=== PATIENT | female | born 1990 | race Caucasian/White ===

== ENCOUNTER 2023-03-16 21:49 | Emergency (ER) | payer OTHER, SELFPAY ==
[2023-03-16 21:50] VITALS: BP 127/87; PULSE 96; RESP 16; TEMP 36.9; O2SAT 99; BMI 29.6
--- NOTE | 2023-03-16 21:59 | XR_ITS ---
PROCEDURE INFORMATION: Exam: XR Chest Exam date and time: 03/16/2023 10:00 PM Age: 32 years old Clinical indication: Chest wall pain; Additional info: Lt abd pain TECHNIQUE: Imaging protocol: Radiologic exam of the chest. Views: 2 views. COMPARISON: CR CXR CHEST(2 VIEWS-NOT PORTABLE) 03/22/2017 2:00 AM FINDINGS: Lungs: Normal pulmonary expansion. Pulmonary vasculature grossly normal. No gross pulmonary infiltrates or edema pattern. Pleural spaces: No pleural effusion. No pneumothorax. Heart/Mediastinum: Heart size normal. No tracheal/mediastinal shift. Bones/joints: No acute osseous abnormalities are identified. Mild lower thoracic spondylosis. IMPRESSION: No acute thoracic process.
[2023-03-16 22:00] VITALS: BP 119/77; PULSE 98; O2SAT 97
--- NOTE | 2023-03-16 22:00 | CT_ITS ---
PROCEDURE INFORMATION: Exam: CT Abdomen And Pelvis With Contrast Exam date and time: 03/16/2023 10:19 PM Age: 32 years old Clinical indication: Abdominal pain; Additional info: Lt side abd pain TECHNIQUE: Imaging protocol: Computed tomography of the abdomen and pelvis with contrast. Radiation optimization: All CT scans at this facility use at least one of these dose optimization techniques: automated exposure control; mA and/or kV adjustment per patient size (includes targeted exams where dose is matched to clinical indication); or iterative reconstruction. Contrast material: ISOVUE; Contrast volume: 75 ml; Contrast route: IV; REPORTING DATA: Count of CT and Cardiac NM exams in prior 12 months: This patient has received 0 known CTs and 0 known cardiac nuclear medicine studies in the 12 months prior to the current study. COMPARISON: CR XR CHEST 2V 03/16/2023 10:00 PM FINDINGS: Lungs: Visualized lung bases are clear. Heart: Heart size normal. Mediastinal space: The visualized distal esophagus is largely contracted without gross abnormality. Liver: Normal contour. No mass lesions. No intrahepatic biliary ductal dilatation. Gallbladder and bile ducts: Normal. No calcified stones. No ductal dilation. Pancreas: Normal. No inflammatory changes or ductal dilation. Spleen: Normal. No splenomegaly. Adrenal glands: Normal. No adrenal mass. Kidneys and ureters: No acute abnormalities. No hydronephrosis or hydroureter. No urinary tract stones are identified. Stomach and bowel: The stomach is largely contracted. The small bowel is nondilated with no gross abnormality. No acute colonic abnormalities. Appendix: The appendix is normal in caliber and demonstrates no evidence of appendicitis. Intraperitoneal space: No free fluid or air. Vasculature: No acute process. No abdominal aortic aneurysm. Lymph nodes: No adenopathy. Urinary bladder: Question slight urinary bladder wall thickening with no significant stranding, correlate with UA for evidence of cystitis. Reproductive: Prior hysterectomy. 1.8 cm simple right ovarian cyst/follicle incidentally noted. Bones/joints: No acute osseous abnormalities. Soft tissues: Unremarkable. IMPRESSION: 1. No definite acute process. 2. Question mild urinary bladder wall thickening without adjacent stranding, correlate with UA for evidence of cystitis.
--- NOTE | 2023-03-16 22:06 | ECG_ITS ---
APPROVED REPORT Exam: Resting ECG HR:93 bpm ECG Measurements Heart Rate 93 AXES IN 128 P 64 QRSd 99 QRS 57 QT 366 T 53 QTc 417 Conclusion SINUS RHYTHM POSSIBLE LEFT ATRIAL ENLARGEMENT [-0.1mV P-WAVE IN V1/V2] BORDERLINE ECG UNCONFIRMED REPORT Electronically signed by : Faizan Lee MD 03/17/2023 15:51:58
--- NOTE | 2023-03-16 22:09 | PC.NURSE ---
pt going to scan
[2023-03-16 22:12] LABS: Basophils % 0.2 % (0.1-2.0); Eosinophils # 0.2 K/mm3 (0.0-0.4); Eosinophils % 2.1 % (0.1-12.0); Hematocrit 45.7 % (37.0-47.0); Lymphocytes # 1.3 K/mm3 (0.7-4.5); Lymphocytes % 12.6 % (10-50); Mean Corpuscular HGB Conc 32.9 g/dL (31.8-35.4); Mean Corpuscular Volume 91.1 fl (81-99); Mean Platelet Volume 7.3 fl (7.4-10.4); Monocytes # 0.2 K/mm3 (0.1-1.0); Monocytes % 1.7 % (1.7-9.3); Neutrophils # 8.2 K/mm3 (1.8-7.8); Neutrophils % 83.4 % (37.0-80.0); Platelet Count 332 K/mm3 (142-424); Red Blood Count 5.02 M/mm3 (4.20-5.40); Red Cell Distribution Width 13.1 % (11.5-17.5); White Blood Count 9.9 K/mm3 (4.8-10.8)
[2023-03-16 22:14] LABS: Chloride 99 mmol/L (98-107); Potassium 3.8 mmoL/L (3.5-5.1); Sodium 139 mmol/L (136-145)
[2023-03-16 22:17] LABS: Alanine Aminotransferase 31 U/L (12-78); Albumin Level 4.3 g/dl (3.5-5.0); Albumin/Globulin Ratio 1.4 (1.1-1.8); Alkaline Phosphatase 79 U/L (38-126); Anion Gap 18.8 mEq/L (5-15); Aspartate Amino Transferase 29 U/L (14-36); Bilirubin,Total 0.2 mg/dl (0.2-1.3); Blood Urea Nitrogen 5 mg/dl (7-17); Carbon Dioxide 25 mmol/L (22.0-30.0); Creatinine Clearance Estimated 150 mL/min (50-200); Estimated Glomerular Filt Rate 98 ml/min (>60); GFR (African American) 119 ML/MIN (>60); Globulin 3.1 g/dL (1.3-3.2); Glucose 123 mg/dl (74-100); Total Protein,Serum 7.4 g/dl (6.3-8.2)
[2023-03-16 22:27] LABS: NT Pro Brain Natriuretic Pep. 136 pg/mL (0-125)
[2023-03-16 22:30] VITALS: BP 112/68; PULSE 79; O2SAT 98
[2023-03-16 22:30] LABS: Troponin I < 0.01 ng/ml (0.00-0.034)
[2023-03-16 23:01] VITALS: BP 108/71; PULSE 39; O2SAT 94
[2023-03-16 23:30] VITALS: BP 108/78; PULSE 64; RESP 20; O2SAT 98
[2023-03-16 23:38] VITALS: BP 110/78; PULSE 67; RESP 20; TEMP 36.9; O2SAT 98
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
== END 2023-03-16 23:40 | disposition home or self-care (01) ==
PROVIDERS: Emergency Provider Emergency Medicine; PCP Family Medicine
DX: R07.81 Pleurodynia; R42 Dizziness and giddiness; F17.200 Nicotine dependence, unspecified, uncomplicated; R10.12 Left upper quadrant pain
CPT/HCPCS: 71046; 74177; 80053; 83880; 84484; 85025; 93005; 96361; 96374; 96375; 99285; J2405; Q9967

== ENCOUNTER 2024-11-04 18:51 | Emergency (ER) | payer OTHER, SELFPAY ==
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
[2024-11-04 18:59] VITALS: BP 133/78; PULSE 67; RESP 18; TEMP 36.9; O2SAT 98; BMI 31.3
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
[2024-11-04] MEDS: LIDOCAINE 5% TRANSDERMAL PATCH 1 EACH TP (19:30)
[2024-11-04] MEDS: IBUPROFEN 400 MG TABLET 800 MG PO (19:30)
[2024-11-04] MEDS: ACETAMINOPHEN 500MG TAB 1000 MG PO (19:30)
[2024-11-04] MEDS: METHOCARBAMOL 500MG TABLET 500 MG PO (19:30)
--- NOTE | 2024-11-04 19:33 | PC.NURSE ---
Pt to xray via wheelchair
[2024-11-04 20:53] VITALS: BP 121/74; PULSE 62; RESP 20; TEMP 36.8; O2SAT 99
== END 2024-11-04 20:57 | disposition home or self-care (01) ==
PROVIDERS: Emergency Provider Emergency Medicine; PCP Family Medicine
DX: S20.219A Contusion of unspecified front wall of thorax, initial encounter (principal); S62.607A Fracture of unspecified phalanx of left little finger, initial encounter for closed fracture; R07.89 Other chest pain; M79.645 Pain in left finger(s); Y04.0XXA Assault by unarmed brawl or fight, initial encounter; Y93.89 Activity, other specified; Y92.9 Unspecified place or not applicable
CPT/HCPCS: 71250; 73130; 99284

== ENCOUNTER 2024-11-18 09:42 | Outpatient (CLI) | payer OTHER, SELFPAY ==
--- NOTE | 2024-11-18 09:46 | XR_ITS ---
FINAL REPORT CLINICAL HISTORY: Lt Hand Pain, 5th digit COMPARISON: None FINDINGS: LEFT HAND Three views demonstrate no acute fracture or dislocation. The visualized joint spaces are normally aligned. The soft tissues are unremarkable. IMPRESSION: No acute process. Reviewed, Interpreted and Dictated by Cayden Prater MD Transcribed by Suma Reddy Authenticated and [facility]
== END 2024-11-18 23:59 | disposition home or self-care (01) ==
LOC: RAD 09:42
PROVIDERS: PCP Family Medicine; Visit Provider Orthopaedic Surgery
DX: M79.642 Pain in left hand (principal); S62.667A Nondisplaced fracture of distal phalanx of left little finger, initial encounter for closed fracture
CPT/HCPCS: 73130

== ENCOUNTER 2024-11-26 19:26 | Emergency (ER) | payer OTHER, SELFPAY ==
[2024-11-26 19:27] VITALS: BP 119/56; PULSE 66; RESP 16; TEMP 36.9; O2SAT 99; BMI 30.1
[2024-11-26] MEDS: LACTATED RINGERS 1000ML 1,000 ML 999 ML IV (20:00)
[2024-11-26] MEDS: ACETAMINOPHEN 1,000MG/100ML VIAL 1000 MG IV (20:01)
[2024-11-26] MEDS: diphenhydrAMINE 50MG/ML VIAL 25 MG IV (20:02)
[2024-11-26] MEDS: METOCLOPRAMIDE HCL 10MG/2ML VIAL 5 MG IVP (20:02)
[2024-11-26] MEDS: KETOROLAC 30MG/ML VIAL 15 MG IV (20:03)
--- NOTE | 2024-11-26 20:26 | ED_ITS ---
Discharge Plan Disposition Patient Disposition: Home, Self-Care Condition: Good Prescriptions Prescriptions: No Action famotidine [Pepcid] 20 mg tablet 20 mg PO BID 42 Days Qty: 84 0RF dicyclomine 20 mg tablet 20 mg PO QID PRN (Reason: abdominal pain) Qty: 20 0RF prednisone 50 mg tablet 50 mg PO DAILY 5 Days Qty: 5 0RF ondansetron 4 mg tablet,disintegrating 4 mg PO Q8H PRN (Reason: nausea and vomiting) 3 Days Qty: 14 0RF methocarbamol 750 mg tablet 750 mg PO Q6H PRN (Reason: muscle spasm) Qty: 20 0RF lidocaine 5 % adhesive patch,medicated 1 patch topical DAILY Qty: 30 0RF Rx Instructions: leave on most painful area for up to 12 hrs Referrals Follow up/Referrals: Nasir Pradhan MD [Primary Care Provider] - See instructions Activity Restrictions/Add. Instructions Additional Instructions/Restrictions: You were evaluated in the emergency department today. Please follow-up closely with your primary care provider. Return to the emergency department for new or worsening symptoms. Clinical Impressions Clinical Impression: Migraine Stand Alone Forms Stand Alone Forms: Work/School Release Instructions Patient Instructions: DI for Migraine Print Language Print Language: Algerian Discharge ED Provider: Mine Mitchell General Adult HPI General Chief complaint: Headache Stated complaint: CORBIN Time Seen by Provider: 11/26/24 19:34 Mode of Arrival: Ambulatory Source of Information: Patient Limitations: No Limitations Description of Symptoms (Recalled from ER Triage Doc. by RN): pT C/O MIGRAINE, +NV, STARTED YESTERDAY, WORSENING TODAY. PT WITH HX OF MIGRAINES. OTC MEDS TDAY AT 1500 W/ OUT RELIEF. History of Present Illness HPI narrative: This patient is a 34-year-old female with history of migraines presented to the emergency department for evaluation with concern for flareup of migraine. She states that he started out as a dull headache 2 days ago but is progressively worsened into a full-blown migraine. She tried her usual remedies at home including ibuprofen, caffeine, etc. but nothing seems to make the symptoms better. No new features. With this, she does have nausea and photophobia. No recent traumatic injuries or other concerns noted at this time Related Data Previous Rx's ?Medication ?Instructions ?Recorded dicyclomine 20 mg tablet 20 mg PO QID PRN abdominal pain 03/16/23 #20 tabs famotidine 20 mg tablet (Pepcid) 20 mg PO BID 6 weeks #84 tabs 03/16/23 ondansetron 4 mg disintegrating 4 mg PO Q8H PRN nausea and 03/16/23 tablet vomiting 3 days #14 tabs prednisone 50 mg tablet 50 mg PO DAILY 5 days #5 tabs 03/16/23 lidocaine 5 % topical patch 1 patch topical DAILY #30 ea 11/04/24 methocarbamol 750 mg tablet 750 mg PO Q6H PRN muscle spasm #20 11/04/24 tabs Allergies Allergy/AdvReac Type Severity Reaction Status Date / Time No Known Allergies Allergy Verified 11/18/24 10:16 [facility] Disclaimer: The information contained in this section may have been updated after the patient was seen, as this information can be updated by other users. Social History Smoking Status: Current every day smoker alcohol intake: never current occupational status: other Travel in the last 8 weeks: None Have you lived/traveled outside [place] in past 30 days?: No Contact w/someone who lives/traveled outside US past 30 days?: No Exposure to someone with infectious disease in past 14 days?: No Do you have a fever (greater than 100.4 F or 38 C)?: No Have you tested positive for COVID-19: No Exposed to someone with COVID-19 in past 14 days?: No Do you have a sore throat?: No Do you have a cough?: No Do you have any weakness?: No Do you have any diarrhea?: No Are you experiencing any unusual bleeding?: No Do you have any muscle aches/pain?: No Do you have any abdominal pain?: No Are you experiencing loss of taste or smell?: No ROS Obtained: Yes All systems reviewed & no additional complaints except as documented Physical Exam General General appearance: alert and in no apparent distress Head Head exam: atraumatic and normocephalic Eye Eye exam: Present normal appearance, PERRL and EOMI ENT ENT exam: Present normal exam, normal oropharynx, mucous membranes moist and normal external ear exam Neck Neck exam: Present normal inspection, full ROM and trachea midline; Absent tenderness Chest Chest inspection: Present normal inspection and symmetric chest wall rise; Absent tenderness Respiratory Respiratory exam: Present normal lung sounds bilaterally; Absent respiratory distress, wheezes, stridor or accessory muscle use Cardiovascular Cardiovascular exam: Present regular rate and normal rhythm Abdominal Exam Abdominal exam: Present soft; Absent distention, tenderness or guarding Extremities Exam Extremities exam: Present normal inspection, full ROM and normal capillary refill; Absent tenderness or edema Back Exam Back exam: Present normal inspection and full ROM; Absent tenderness Neurological Exam Neurological exam: Present alert, oriented X3, CN II-XII intact and normal gait; Absent motor sensory deficit Psychiatric Psychiatric exam: Present normal affect and normal mood Skin Skin exam: Present warm and dry Medical Decision Making Medical Records Medical records reviewed: Yes I reviewed the patient's medical records. Screening: Per USPSTF and CDC recommendations, given the prevalence of disease in our region, it is our hospital?s policy to screen for HIV and viral Hepatitis for all patients aged 18 and over and those with ongoing risk factors. Kevyn Inquiry Pt receiving controlled substance: No Vital Signs: 11/26/24 19:27 11/26/24 22:49 Temperature 98.4 F 97.9 F Temperature Source Oral Tympanic Pulse Rate 78 Pulse Rate [Apical] 66 Respiratory Rate 16 18 Blood Pressure 115/78 Blood Pressure [Right Arm] 119/56 L Blood Pressure Mean [Right Arm] 77 02 Sat by Pulse Oximetry 99 Oxygen Delivery Method Room Air Room Air Lab Data Lab results reviewed: Yes I reviewed the patient's lab results. Orders (Tests/Meds): ED MEDICATIONS Discontinued Medications Generic Name Dose Route Start Last Admin Trade Name Freq PRN Reason Stop Dose Admin Acetaminophen 1,000 mg 11/26/24 19:44 11/26/24 20:01 Acetaminophen 1,000mg/100ml Vial IV 11/26/24 19:45 1,000 mg ONCE ONE Administration Dexamethasone Sodium Phosphate 10 mg 11/26/24 21:44 11/26/24 21:56 Dexamethasone 4mg/Ml 1ml Vial IV 11/26/24 21:45 10 mg ONCE ONE Administration Diphenhydramine HCl 25 mg 11/26/24 19:44 11/26/24 20:02 Diphenhydramine 50mg/Ml Vial IV 11/26/24 19:45 25 mg ONCE ONE Administration Lactated Ringer's 1,000 mls @ 999 mls/hr 11/26/24 19:44 11/26/24 20:00 Lactated Ringer's 1000 Ml Bag IV 11/26/24 20:44 999 mls/hr .Q1H1M ONE Administration Ketorolac Tromethamine 15 mg 11/26/24 19:44 11/26/24 20:03 Ketorolac 30mg/Ml Vial IV 11/26/24 19:45 15 mg ONCE ONE Administration Magnesium Oxide 400 mg 11/26/24 21:45 11/26/24 21:56 Magnesium Oxide 400mg Tablet PO 11/26/24 21:46 400 mg ONCE ONE Administration Metoclopramide HCl 5 mg 11/26/24 19:44 11/26/24 20:02 Metoclopramide Hcl 10mg/2ml Vial IVP 11/26/24 19:45 5 mg ONCE ONE Administration Medical Decision Narrative: In summary, this patient is a 34-year-old female presenting to the Emergency Department for evaluation of migraine. Differential diagnoses considered include but are not limited to migraine, tension headache, intracranial hemorrhage. Ruling out the most morbid conditions drove assessment. It should be noted patient's history includes migraines which is not at goal therapy. This complicates all aspects of care by increasing patient's risk for morbidity. On exam, the patient is very well-appearing. She is neurologically intact without focal neurologic deficits. She has history of migraines and this is without new significant features. No recent traumatic injury or other concern. This was not sudden onset thunderclap, it was gradual in onset. 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 Patient was agreeable to receive migraine cocktail. She was given IV Toradol, acetaminophen, Reglan, Benadryl, IV dexamethasone, oral magnesium, and a bolus of IV fluids to assess for symptomatic improvement. On reassessment, she is feeling better and is neurologically intact with reassuring vital signs on cardiac telemetry. I feel she is appropriate for discharge home with instructions for close follow-up on an outpatient basis for her chronic migraines. Strict return precautions were given and she was discharged after all questions were answered Critical Care Critical Care Time Critical Care Time: No
[2024-11-26] MEDS: MAGNESIUM OXIDE 400MG TABLET 400 MG PO (21:56)
[2024-11-26] MEDS: DEXAMETHASONE 4MG/ML 1ML VIAL 10 MG IV (21:56)
[2024-11-26 22:49] VITALS: BP 115/78; PULSE 78; RESP 18; TEMP 36.6; O2SAT 100
== END 2024-11-26 22:56 | disposition home or self-care (01) ==
PROVIDERS: Emergency Provider Emergency Medicine; PCP Family Medicine
DX: G43.909 Migraine, unspecified, not intractable, without status migrainosus (principal); R11.2 Nausea with vomiting, unspecified; H53.149 Visual discomfort, unspecified
CPT/HCPCS: 96361; 96374; 96375; 99283; J0131; J1100; J1200; J1885; J2765; J7120

== ENCOUNTER 2025-02-26 16:19 | Emergency (ER) | payer OTHER, SELFPAY ==
[2025-02-26 16:22] VITALS: BP 115/71; PULSE 60; RESP 18; TEMP 36.6; O2SAT 99; BMI 31.8
--- NOTE | 2025-02-26 16:27 | ED_ITS ---
<Statement entered by Mine Mitchell DO - 02/27/25 00:38> I was consulted by the SOBIA, and we discussed the complexity of the problems being addressed. I approved the treatment and management plan for this patient's care in the emergency department, thus performing a substantive portion of the medical decision making. Mine Mitchell DO Discharge Plan Disposition Patient Disposition: Eloped Chief Complaint: Headache Prescriptions Prescriptions: No Action famotidine [Pepcid] 20 mg tablet 20 mg PO BID 42 Days Qty: 84 0RF dicyclomine 20 mg tablet 20 mg PO QID PRN (Reason: abdominal pain) Qty: 20 0RF prednisone 50 mg tablet 50 mg PO DAILY 5 Days Qty: 5 0RF ondansetron 4 mg tablet,disintegrating 4 mg PO Q8H PRN (Reason: nausea and vomiting) 3 Days Qty: 14 0RF methocarbamol 750 mg tablet 750 mg PO Q6H PRN (Reason: muscle spasm) Qty: 20 0RF lidocaine 5 % adhesive patch,medicated 1 patch topical DAILY Qty: 30 0RF Rx Instructions: leave on most painful area for up to 12 hrs Referrals Follow up/Referrals: Nasir Pradhan MD [Primary Care Provider] - See instructions Clinical Impressions Clinical Impression: Headache Qualifiers: Headache type: unspecified Headache chronicity pattern: episodic headache I ntractability: not intractable Qualified Code(s): R51.9 - Headache, unspecified Print Language Print Language: Danish Discharge ED Provider: Mine Mitchell General Adult HPI General Chief complaint: Headache Stated complaint: headache for six days Time Seen by Provider: 02/26/25 16:27 Mode of Arrival: Ambulatory Source of Information: Patient Description of Symptoms (Recalled from ER Triage Doc. by RN): Pt presents for evaluation of a headache that started 6 days ago. Pt states she has tried OTC treatment but has not had relief from her headache. Pt states today at 11am she started vomiting. Pt has a hx of migraines. History of Present Illness HPI narrative: Patient presents for evaluation of 6 days of migraine headache. Patient has a longstanding history of known migraine headache. However she has no abortive medications currently. She has tried multiple [id number] regimens including Tylenol and NSAIDs without relief. Patient reports photophobia phonophobia denies any focal neurologic deficits. Patient states this feels very similar to her previous history of migraines. She has them approximately once a month. She has had a hysterectomy but still retains her ovaries. Related Data Previous Rx's ?Medication ?Instructions ?Recorded dicyclomine 20 mg tablet 20 mg PO QID PRN abdominal pain 03/16/23 #20 tabs famotidine 20 mg tablet (Pepcid) 20 mg PO BID 6 weeks #84 tabs 03/16/23 ondansetron 4 mg disintegrating 4 mg PO Q8H PRN nausea and 03/16/23 tablet vomiting 3 days #14 tabs prednisone 50 mg tablet 50 mg PO DAILY 5 days #5 tabs 03/16/23 lidocaine 5 % topical patch 1 patch topical DAILY #30 ea 11/04/24 methocarbamol 750 mg tablet 750 mg PO Q6H PRN muscle spasm #20 11/04/24 tabs Allergies Allergy/AdvReac Type Severity Reaction Status Date / Time No Known Allergies Allergy Verified 11/18/24 10:16 [facility] Disclaimer: The information contained in this section may have been updated after the patient was seen, as this information can be updated by other users. Social History Smoking Status: Current every day smoker alcohol intake: never current occupational status: other Travel in the last 8 weeks: None Have you lived/traveled outside US in past 30 days?: No Contact w/someone who lives/traveled outside US past 30 days?: No Exposure to someone with infectious disease in past 14 days?: No Do you have a fever (greater than 100.4 F or 38 C)?: No Have you tested positive for COVID-19: No Exposed to someone with COVID-19 in past 14 days?: No Do you have a sore throat?: No Do you have a cough?: No Do you have any weakness?: No Do you have any diarrhea?: No Are you experiencing any unusual bleeding?: No Do you have any muscle aches/pain?: No Do you have any abdominal pain?: No Are you experiencing loss of taste or smell?: No ROS Obtained: Yes Systems reviewed as appropriate & no additional complaints except as documented Physical Exam General General appearance: alert and in no apparent distress Respiratory Respiratory exam: Present normal lung sounds bilaterally and accessory muscle use Cardiovascular Cardiovascular exam: Present regular rate Neurological Exam Neurological exam: Present alert and oriented X3 Medical Decision Making Medical Records Medical records reviewed: Yes I reviewed the patient's medical records. Screening: Per USPSTF and CDC recommendations, given the prevalence of disease in our region, it is our hospital?s policy to screen for HIV and viral Hepatitis for all patients aged 18 and over and those with ongoing risk factors. Kevyn Inquiry Pt receiving controlled substance: No Vital Signs: 02/26/25 16:22 02/26/25 17:00 02/26/25 18:28 Temperature 98 F 0 F L Temperature Source Oral Pulse Rate 62 0 L Pulse Rate [Right] 60 Respiratory Rate 18 0 L Blood Pressure 91/52 L 0/0 L Blood Pressure [Right Arm] 115/71 Blood Pressure Mean [Right Arm] 85 Blood Pressure Source [Right Arm] Automatic Cuff Blood Pressure Position [Right Arm] Sitting 02 Sat by Pulse Oximetry 99 99 Oxygen Delivery Method Room Air Lab Data Lab results reviewed: Yes I reviewed the patient's lab results. Lab Results 02/26/25 16:35: WBC 8.5, RBC 4.54, Hgb 14.0, Hct 41.6, MCV 91.6, MCH 30.8, MCHC 33.7, RDW 14.0, Plt Count 293, MPV 9.6, Neut % (Auto) 67.0, Lymph % (Auto) 21.8, [place] % (Auto) 6.0, Eos % (Auto) 4.0, Baso % (Auto) 0.5, Neut # (Auto) 5.7, Lymph # (Auto) 1.9, [place] # (Auto) 0.5, Eos # (Auto) 0.3, Baso # (Auto) 0.0, ESR 15, Sodium 138, Potassium 3.8, Chloride 107, Carbon Dioxide 25, Anion Gap 9.8, BUN 5 L, Creatinine 0.70, Estimated Creat Clear 149, Estimated GFR 97, Est GFR ( Amer) 117, Glucose 116 H, Calcium 8.7, Magnesium 1.8, Total Bilirubin 0.3, AST 27, ALT 25, Alkaline Phosphatase 93, C-Reactive Protein 4.8 H, Total Protein 6.9, Albumin 3.9, Globulin 3.0, Albumin/Globulin Ratio 1.3 02/26/25 17:10: SARS-CoV-2 (PCR) Not detected, Influenza A Untype (PCR) Not detected, Influenza Type B (PCR) Not detected 02/26/25 16:35 02/26/25 16:35 Orders (Tests/Meds): ED MEDICATIONS Discontinued Medications Generic Name Dose Route Start Last Admin Trade Name Rodriguezq PRN Reason Stop Dose Admin Acetaminophen 1,000 mg 02/26/25 16:47 02/26/25 16:57 Acetaminophen 1,000mg/100ml Vial IV 02/26/25 16:48 1,000 mg ONCE ONE Administration Dexamethasone Sodium Phosphate 10 mg 02/26/25 16:47 02/26/25 16:57 Dexamethasone 4mg/Ml 5ml Mdv IV 02/26/25 16:48 10 mg ONCE ONE Administration Diphenhydramine HCl 50 mg 02/26/25 16:47 02/26/25 16:58 Diphenhydramine 50mg/Ml Vial IV 02/26/25 16:48 50 mg ONCE ONE Administration Sodium Chloride 1,000 mls @ 999 mls/hr 02/26/25 16:47 02/26/25 16:57 Sod Chlor 0.9% 1000ml Bag IV 02/26/25 17:47 999 mls/hr .Q1H1M ONE Administration Ketorolac Tromethamine 15 mg 02/26/25 16:47 02/26/25 16:57 Ketorolac 30mg/Ml Vial IV 02/26/25 16:48 15 mg ONCE ONE Administration Methocarbamol 500 mg 02/26/25 16:47 02/26/25 16:58 Methocarbamol 500mg Tablet PO 02/26/25 16:48 500 mg ONCE ONE Administration Prochlorperazine Edisylate 5 mg 02/26/25 16:47 02/26/25 16:58 Prochlorperazine 10mg/2ml Vial IV 02/26/25 16:48 5 mg ONCE ONE Administration ORDERS Category Date Time Status CBC w/Auto Diff [Complete Blood Count Auto Diff] Stat Lab 02/26/25 16:35 Completed CMP [Comprehensive Metabolic Panel] Stat Lab 02/26/25 16:35 Completed CRP [C-Reactive Protein] Stat Lab 02/26/25 16:35 Completed ESR [Erythrocyte Sedimentation Rate] Stat Lab 02/26/25 16:35 Completed Magnesium Stat Lab 02/26/25 16:35 Completed Rapid PCR Covid and Flu A/B Stat Lab 02/26/25 17:10 Completed Medical Decision Narrative: In summary patient is a 34-year-old female who presents to the emergency department for evaluation of migraine headache. Patient is hemodynamically stable upon arrival, febrile. Physical exam is remarkable for a Dusty Coma Score 15 cranial nerves II through XII are intact grossly to exam patient is alert and oriented person place and circumstance. Pupils equal round reactive to light. Patient has no cervical tenderness no nuchal rigidity. Patient has no focal neurologic deficits. She moves all 4 extremities and is ambulatory in the ER.. Differential diagnosis includes migraine headache versus electrolyte abnormality versus viral illness etc. Initial workup will be conducted with hematologic labs respiratory swabs. Imaging was considered however patient is very familiar with her migraines and this is very reminiscent of her chronic headaches and there are no red flags to suggest another etiology thus imaging deferred initial interventions include crystalloid bolus Tylenol Toradol Decadron Robaxin Compazine. Initial workup reviewed by me and her hematologic labs are nonactionable. Upon repeat evaluation patient had eloped prior to her reassessment.. Critical Care Critical Care Time Critical Care Time: No
[2025-02-26 16:54] LABS: Basophils % 0.5 % (0.1-2.0); Eosinophils # 0.3 K/mm3 (0.0-0.4); Hematocrit 41.6 % (37.0-47.0); Lymphocytes # 1.9 K/mm3 (0.7-4.5); Lymphocytes % 21.8 % (10-50); Mean Corpuscular HGB Conc 33.7 g/dL (31.8-35.4); Mean Corpuscular Hemoglobin 30.8 pg (27.0-31.2); Mean Corpuscular Volume 91.6 fl (81-99); Mean Platelet Volume 9.6 fl (7.4-10.4); Monocytes # 0.5 K/mm3 (0.1-1.0); Neutrophils # 5.7 K/mm3 (1.8-7.8); Nucleated Red Blood Cells # 0 10^3/uL; Nucleated Red Blood Cells % 0 %; Platelet Count 293 K/mm3 (142-424); Red Blood Count 4.54 M/mm3 (4.20-5.40); Red Cell Distribution Width-SD 47.6 fL; White Blood Count 8.5 K/mm3 (4.8-10.8)
[2025-02-26] MEDS: 0.9 % SODIUM CHLORIDE 1000ML 1,000 ML 999 ML IV (16:57)
[2025-02-26] MEDS: KETOROLAC 30MG/ML VIAL 15 MG IV (16:57)
[2025-02-26] MEDS: ACETAMINOPHEN 1,000MG/100ML VIAL 1000 MG IV (16:57)
[2025-02-26] MEDS: DEXAMETHASONE 4MG/ML 5ML MDV 10 MG IV (16:57)
[2025-02-26] MEDS: METHOCARBAMOL 500MG TABLET 500 MG PO (16:58)
[2025-02-26] MEDS: PROCHLORPERAZINE 10MG/2ML VIAL 5 MG IV (16:58)
[2025-02-26] MEDS: diphenhydrAMINE 50MG/ML VIAL 50 MG IV (16:58)
[2025-02-26 17:00] VITALS: BP 91/52; PULSE 62; O2SAT 99
[2025-02-26 17:01] LABS: Albumin Level 3.9 g/dl (3.5-5.0); Chloride 107 mmol/L (98-107); Potassium 3.8 mmoL/L (3.5-5.1); Sodium 138 mmol/L (136-145)
[2025-02-26 17:03] LABS: Blood Urea Nitrogen 5 mg/dl (7-17); Creatinine Clearance Estimated 149 mL/min (50-200); Estimated Glomerular Filt Rate 97 ml/min (>60); GFR (African American) 117 ML/MIN (>60)
[2025-02-26 17:04] LABS: Alanine Aminotransferase 25 U/L (12-78); Albumin/Globulin Ratio 1.3 (1.1-1.8); Alkaline Phosphatase 93 U/L (38-126); Anion Gap 9.8 mEq/L (5-15); Aspartate Amino Transferase 27 U/L (14-36); Bilirubin,Total 0.3 mg/dl (0.2-1.3); Calcium 8.7 mg/dl (8.4-10.2); Carbon Dioxide 25 mmol/L (22.0-30.0); Glucose 116 mg/dl (74-100); Total Protein,Serum 6.9 g/dl (6.3-8.2)
[2025-02-26 17:05] LABS: Magnesium 1.8 mg/dl (1.6-2.3)
[2025-02-26 17:12] LABS: C-Reactive Protein 4.8 mg/L (0-4)
[2025-02-26 17:16] LABS: Coronavirus 19, PCR Not Detected (NotDetected); Influenza A, PCR Not Detected (NotDetected); Influenza B, PCR Not Detected (NotDetected)
[2025-02-26 17:52] LABS: Erythrocyte Sedimentation Rate 15 mm/hr (0-20)
--- NOTE | 2025-02-26 18:11 | PC.NURSE ---
When rounded on the pt she was not in her room. Her IV was previously discontinued per EMR.
[2025-02-26 18:28] VITALS: BP 0/0; PULSE 0; RESP 0; TEMP -17.7; TEMP 0; O2SAT 0
== END 2025-02-26 18:32 | disposition left against medical advice (07) ==
PROVIDERS: Physician Assistant; Emergency Provider Emergency Medicine; PCP Family Medicine
DX: G43.909 Migraine, unspecified, not intractable, without status migrainosus (principal)
CPT/HCPCS: 80053; 83735; 85025; 85651; 86140; 87636; 96361; 96374; 96375; 99284; J0131; J0780; J1100; J1200; J1885; J7030

== ENCOUNTER 2025-03-06 11:57 | Emergency (ER) | payer OTHER, SELFPAY ==
--- NOTE | 2025-03-06 12:03 | ED_ITS ---
Discharge Plan Disposition Patient Disposition: Home, Self-Care Condition: Good Prescriptions Prescriptions: New amoxicillin-pot clavulanate 875-125 mg tablet 1 tab PO BID 5 Days Qty: 10 0RF No Action famotidine [Pepcid] 20 mg tablet 20 mg PO BID 42 Days Qty: 84 0RF dicyclomine 20 mg tablet 20 mg PO QID PRN (Reason: abdominal pain) Qty: 20 0RF prednisone 50 mg tablet 50 mg PO DAILY 5 Days Qty: 5 0RF ondansetron 4 mg tablet,disintegrating 4 mg PO Q8H PRN (Reason: nausea and vomiting) 3 Days Qty: 14 0RF methocarbamol 750 mg tablet 750 mg PO Q6H PRN (Reason: muscle spasm) Qty: 20 0RF lidocaine 5 % adhesive patch,medicated 1 patch topical DAILY Qty: 30 0RF Rx Instructions: leave on most painful area for up to 12 hrs Referrals Follow up/Referrals: Nasir Pradhan MD [Primary Care Provider] - See instructions Activity Restrictions/Add. Instructions Additional Instructions/Restrictions: Please follow-up with your PCP Sunday or Sunday of next week. I sent a prescription into your pharmacy for a prescription for Augmentin. Additionally please take a baby aspirin once a day at least until you see your PCP and he can decide whether or not to continue it. Please take until its gone. Continue treating symptomatically with warm compresses elevation Tylenol alternating with ibuprofen. If you have any continuing new or worsening signs or symptoms follow-up with your PCP sooner or return to the ER as needed. Clinical Impressions Clinical Impression: Superficial thrombophlebitis Qualifiers: Superficial thrombophlebitis-Involved body area: upper extremity Laterality: right Qualified Code(s): I80.8 - Phlebitis and thrombophlebitis of other sites Instructions Patient Instructions: DI for Skin Abscess Print Language Print Language: Stateless Discharge ED Provider: Luiz Forbes General Adult HPI <SHARMILA Carr - Last Filed: 03/06/25 13:20> General Chief complaint: Skin/Abscess/Foreign Body Stated complaint: rt arm red/ swollen Time Seen by Provider: 03/06/25 12:03 History of Present Illness HPI narrative: Patient presents for evaluation of right arm pain. Patient was seen in the ER approximately 8 days ago for migraine. Patient received an IV in the right antecubital fossa. Patient states that she ultimately had them discontinue her IV because it was painful. She did not suffer any immediate complications however she noticed today that she started having redness and swelling in and around where the IV site was. She denies any numbness tingling chest pain shortness of breath fever chills hemoptysis hematochezia melena nausea vomiting diarrhea. Related Data Previous Rx's ?Medication ?Instructions ?Recorded dicyclomine 20 mg tablet 20 mg PO QID PRN abdominal pain 03/16/23 #20 tabs famotidine 20 mg tablet (Pepcid) 20 mg PO BID 6 weeks #84 tabs 03/16/23 ondansetron 4 mg disintegrating 4 mg PO Q8H PRN nausea and 03/16/23 tablet vomiting 3 days #14 tabs prednisone 50 mg tablet 50 mg PO DAILY 5 days #5 tabs 03/16/23 lidocaine 5 % topical patch 1 patch topical DAILY #30 ea 11/04/24 methocarbamol 750 mg tablet 750 mg PO Q6H PRN muscle spasm #20 11/04/24 tabs amoxicillin 875 mg-potassium 1 tab PO BID 5 days #10 tabs 03/06/25 clavulanate 125 mg tablet Allergies Allergy/AdvReac Type Severity Reaction Status Date / Time No Known Allergies Allergy Verified 11/18/24 10:16 [facility] <SHARMILA Carr - Last Filed: 03/06/25 13:20> [facility] Disclaimer: The information contained in this section may have been updated after the patient was seen, as this information can be updated by other users. Social History Smoking Status: Current every day smoker alcohol intake: never current occupational status: other Travel in the last 8 weeks: None Have you lived/traveled outside [place] in past 30 days?: No Contact w/someone who lives/traveled outside [place] past 30 days?: No Exposure to someone with infectious disease in past 14 days?: No Do you have a fever (greater than 100.4 F or 38 C)?: No Have you tested positive for COVID-19: No Exposed to someone with COVID-19 in past 14 days?: No Do you have a sore throat?: No Do you have a cough?: No Do you have any weakness?: No Do you have any diarrhea?: No Are you experiencing any unusual bleeding?: No Do you have any muscle aches/pain?: No Do you have any abdominal pain?: No Are you experiencing loss of taste or smell?: No <SHARMILA Carr - Last Filed: 03/06/25 13:20> ROS Obtained: Yes Systems reviewed as appropriate & no additional complaints except as documented Physical Exam <SHARMILA Carr - Last Filed: 03/06/25 13:20> General General appearance: alert and in no apparent distress Respiratory Respiratory exam: Present normal lung sounds bilaterally Cardiovascular Cardiovascular exam: Present regular rate Neurological Exam Neurological exam: Present alert Medical Decision Making <SHARMILA Carr - Last Filed: 03/06/25 13:20> Medical Records Medical records reviewed: Yes I reviewed the patient's medical records. Screening: Per USPSTF and CDC recommendations, given the prevalence of disease in our region, it is our hospital?s policy to screen for HIV and viral Hepatitis for all patients aged 18 and over and those with ongoing risk factors. Kevyn Inquiry Pt receiving controlled substance: No Vital Signs: 03/06/25 12:04 03/06/25 13:10 Temperature 97.9 F 98.6 F Temperature Source Oral Oral Pulse Rate 77 Pulse Rate [Radial] 91 H Respiratory Rate 16 18 Blood Pressure 106/73 L Blood Pressure [Left Arm] 117/73 Blood Pressure Mean [Left Arm] 87 Blood Pressure Source Automatic Cuff Blood Pressure Source [Left Arm] Automatic Cuff Blood Pressure Position Supine Blood Pressure Position [Left Arm] Sitting 02 Sat by Pulse Oximetry 100 Oxygen Delivery Method Room Air Room Air Lab Data Lab results reviewed: Yes I reviewed the patient's lab results. Orders (Tests/Meds): ED MEDICATIONS Discontinued Medications Generic Name Dose Route Start Last Admin Trade Name Freq PRN Reason Stop Dose Admin Amoxicillin/Clavulanate Potassium 1 each 03/06/25 13:04 03/06/25 13:12 Amoxicillin/Clavulanate Potassium 875/125mg Tablet PO 03/06/25 13:05 1 each ONCE ONE Administration Aspirin 81 mg 03/06/25 13:04 03/06/25 13:12 Aspirin 81mg Chewable Tablet PO 03/06/25 13:05 81 mg ONCE ONE Administration Ibuprofen 800 mg 03/06/25 12:13 03/06/25 12:20 Ibuprofen 400 Mg Tablet PO 03/06/25 12:14 800 mg ONCE ONE Administration ORDERS Category Date Time Status POCUS Point of Care (ER Only) Stat Exams 03/06/25 12:13 Completed Medical Decision Narrative: In summary patient is a 34-year-old female who presents to the emergency department for evaluation of redness pain and swelling in the right antecubital fossa. Patient is hemodynamically stable upon arrival, afebrile. Physical exam shows redness around the previous IV site in the antecubital fossa with slight hard area but no palpable cords in the superficial veins that I am able to appreciate. Patient is neurovascular intact distally has full range of motion. The borders of the erythema are marked by myself with an ink pen.. Differential diagnosis includes superficial thrombophlebitis versus possible abscess although less likely. Initial workup will be conducted with POCUS for now.. Initial interventions include ibuprofen warm compress. Initial workup reviewed by me and POCUS by Dr. Monge does reveal superficial thrombophlebitis. Upon repeat evaluation we had a shared decision-making discussion with the patient regarding management which is going to be a baby aspirin for about 2 weeks along with Augmentin and over abundance of caution given that it was provoked by IV along with continued symptomatic care with warm compresses elevation Tylenol and ibuprofen.. Thus patient is appropriate for discharge with first dose of Augmentin and baby aspirin given here and close follow-up with her PCP within 48 hours for recheck. Patient given strict return precautions. <Luiz Forbes MD - Last Filed: 03/06/25 13:33> Vital Signs: 03/06/25 12:04 03/06/25 13:10 Temperature 97.9 F 98.6 F Temperature Source Oral Oral Pulse Rate 77 Pulse Rate [Radial] 91 H Respiratory Rate 16 18 Blood Pressure 106/73 L Blood Pressure [Left Arm] 117/73 Blood Pressure Mean [Left Arm] 87 Blood Pressure Source Automatic Cuff Blood Pressure Source [Left Arm] Automatic Cuff Blood Pressure Position Supine Blood Pressure Position [Left Arm] Sitting 02 Sat by Pulse Oximetry 100 Oxygen Delivery Method Room Air Room Air Orders (Tests/Meds): ED MEDICATIONS Discontinued Medications Generic Name Dose Route Start Last Admin Trade Name Freq PRN Reason Stop Dose Admin Amoxicillin/Clavulanate Potassium 1 each 03/06/25 13:04 03/06/25 13:12 Amoxicillin/Clavulanate Potassium 875/125mg Tablet PO 03/06/25 13:05 1 each ONCE ONE Administration Aspirin 81 mg 03/06/25 13:04 03/06/25 13:12 Aspirin 81mg Chewable Tablet PO 03/06/25 13:05 81 mg ONCE ONE Administration Ibuprofen 800 mg 03/06/25 12:13 03/06/25 12:20 Ibuprofen 400 Mg Tablet PO 03/06/25 12:14 800 mg ONCE ONE Administration ORDERS Category Date Time Status POCUS Point of Care (ER Only) Stat Exams 03/06/25 12:13 Completed Medical Decision Narrative: In summary patient is a 34-year-old female who presents to the emergency department for evaluation of redness pain and swelling in the right antecubital fossa. Patient is hemodynamically stable upon arrival, afebrile. Physical exam shows redness around the previous IV site in the antecubital fossa with slight hard area but no palpable cords in the superficial veins that I am able to appreciate. Patient is neurovascular intact distally has full range of motion. The borders of the erythema are marked by myself with an ink pen.. Differential diagnosis includes superficial thrombophlebitis versus possible abscess although less likely. Initial workup will be conducted with POCUS for now.. Initial interventions include ibuprofen warm compress. Initial workup reviewed by me and POCUS by Dr. Monge does reveal superficial thrombophlebitis. Upon repeat evaluation we had a shared decision-making discussion with the patient regarding management which is going to be a baby aspirin for about 2 weeks along with Augmentin and over abundance of caution given that it was provoked by IV along with continued symptomatic care with warm compresses elevation Tylenol and ibuprofen.. Thus patient is appropriate for discharge with first dose of Augmentin and baby aspirin given here and close follow-up with her PCP within 48 hours for recheck. Patient given strict return precautions. I independently examined and interviewed patient. I also performed bedside [id number] ultrasound. She has superficial thrombophlebitis. Agreeable with daily aspirin, 5 days of Augmentin and outpatient follow-up. I was consulted by the SOBIA, and we discussed the complexity of the problems being addressed. I approved the treatment and management plan for this patient's care in the Emergency Department, thus performing a substantive portion of the medical decision making. Luiz Forbes MD Procedures <Luiz Forbes MD - Last Filed: 03/06/25 13:33> Limited Ultrasound Indication:: Limited soft tissue ultrasound Indication: Soft tissue swelling, redness Identified structures: Location: Right upper extremity Findings: Superficial thrombophlebitis right upper extremity at the level of the elbow medially Impression: Superficial thrombophlebitis Images were saved to permanent archive The study was technically adequate Soft Tissue CPT Codes: CPT Neck: 01245-78 CPT Upper extremity: 50671-43 CPT Axilla: 84204-28 CPT Chest wall: 96323-05 CPT Breast: 58285-07-FH/LT (complete), 90494-86-RP/LT (limited), CPT Upper Back: 68015-54 CPT Lower Back: 02889-53 CPT Abdominal Wall: 76777-58 CPT Pelvic Wall: 29021-40 CPT Lower Extremity: 10834-14 CPT Other Soft Tissue: 50110-97 This study was performed by me, and I personally interpreted all images/videos. Based on my clinical judgement, these images were adequate and did not necessitate further imaging. Critical Care <SHARMILA Carr - Last Filed: 03/06/25 13:20> Critical Care Time Critical Care Time: Yes Attestation: On 03/06/25, the high probability of a clinically significant, sudden or life threatening deterioration of the following system(s) required my full and direct attention, intervention and personal management. The time I documented below is in addition to time spent performing reported procedures but includes the following listed in this critical care notation. Total Time Total Critical Care Time: 35
[2025-03-06 12:04] VITALS: BP 117/73; PULSE 91; RESP 16; TEMP 36.6; O2SAT 100; BMI 31.8
[2025-03-06] MEDS: IBUPROFEN 400 MG TABLET 800 MG PO (12:20)
[2025-03-06 13:10] VITALS: BP 106/73; PULSE 77; RESP 18; TEMP 37; O2SAT 97
[2025-03-06] MEDS: ASPIRIN 81MG CHEWABLE TABLET 81 MG PO (13:12)
[2025-03-06] MEDS: AMOXICILLIN/CLAVULANATE POTASSIUM 875/125MG TABLET 1 EACH PO (13:12)
== END 2025-03-06 13:20 | disposition home or self-care (01) ==
PROVIDERS: Emergency Provider Emergency Medicine; PCP Family Medicine
DX: I80.8 Phlebitis and thrombophlebitis of other sites (principal)
CPT/HCPCS: 99291